=== PATIENT | male | born 1965 | race Two or more races ===

== ENCOUNTER 2024-07-02 00:02 | Emergency (ER) | payer SELFPAY ==
[~2024-07-02] VITALS: Ht 167.6 cm; Wt 86.3 kg
[2024-07-02 00:19] VITALS: PULSE 79; RESP 11; TEMP 97.6; O2SAT 97
--- NOTE | 2024-07-02 00:32 | ED.PDOC ---
Altered Mental Status HPI Comments 59-year-old male who came to ER via EMS for altered level of consciousness. Per EMS, patient was drinking heavily at home, when family members noted that patient became unresponsive. CPR initiated by family members as paramedics were called. Paramedics came patient noted to be unresponsive to deep sternal stimuli however has faint pulses and breathing spontaneously. CPR discontinued and that patient brought to the ER. Chief Complaint: ALOC Time Seen by MD: 00:32 Reviewed Notes: Nurses Notes Information Source: Patient Mode of Arrival: EMS Severity: Unresponsive Timing: Hours Duration: Since onset Prehospital treatment: CPR Quality: Decreased Alertness, Change in Behavior Recent: Other (Alcohol intoxication) Associated Signs and Symptoms: None Past Medical History PAST MEDICAL HISTORY: Unobtainable Surgical History: Unobtainable Family History Family History: Unobtainable Social History Smoker: Unobtainable Alcohol: Heavy Drugs: Unobtainable Lives In: Home Unable to Obtain due to: Altered Mental Status Physical Exam General Appearance: No Apparent Distress, Normal HEENT: Normal ENT Inspection, Pharynx Normal, TMs Normal Neck: Full Range of Motion, Non-Tender, Normal, Normal Inspection Respiratory: Chest Non-Tender, Lungs Clear, No Accessory Muscle Use, No Respiratory Distress, Normal Breath Sounds Cardiovascular: No Edema, No JVD, No Murmur, No Gallop, Normal Peripheral Pulses, Regular Rate/Rhythm Breast Exam: Deferred Gastrointestinal: No Organomegaly, Non Tender, No Pulsatile Mass, Normal Bowel Sounds, Soft Genitalia: Deferred Pelvic: Deferred Rectal: Deferred Extremities: No calf tenderness, Normal capillary refill, Normal inspection, Normal range of motion, Non-tender, No pedal edema Musculoskeletal : Apperance: Normal Neurologic: Alert, bath tester II-XII nml as Tested, No Motor Deficits, Normal Affect, Normal Mood, No Sensory Deficits Cerebellar Function: Normal Reflexes: Normal Skin: Dry, Normal Color, Warm Lymphatic: No Adenopathy Was a procedure done? Was a procedure done?: No Differential Diagnosis (ALOC) Differential Diagnosis: Encephalopathy, CVA, Drug Overdose, ETOH Intoxication X-Ray, Labs, Meds, VS Vital Signs Date Time Temp Pulse Resp B/P (MAP) Pulse Ox O2 Delivery O2 Flow Rate FiO2 07/02/24 03:00 68 15 111/63 (79) 97 07/02/24 01:00 77 27 116/65 (82) 96 07/02/24 00:19 97.6 79 11 111/72 (85) 97 97.6 07/02/24 00:19 79 11 97 Nasal Cannula* 4 36 07/02/24 00:07 98.6 72 10 132/71 (91) 95 07/02/24 00:02 78 Lab Test 07/02/24 02:40 07/02/24 01:52 Range/Units Troponin I High Sensitivity 6 7 </=54 ng/L White Blood Count 10.7 4.4-10.8 10^3/uL Red Blood Count 5.04 4.5-5.90 10^6/uL Hemoglobin 14.8 13.5-17.5 g/dL Hematocrit 44.9 41.0-53.0 % Mean Corpuscular Volume 89.0 80.0-100.0 fL Mean Corpuscular Hemoglobin 29.4 28.0-32.0 pg Mean Corpuscular Hemoglobin Concent 33.0 32.0-36.0 g/dL Red Cell Distribution Width 13.6 11.8-14.3 % Platelet Count 199 140-450 10^3/uL Mean Platelet Volume 7.2 6.9-10.8 fL Neutrophils (%) (Auto) 74.1 37.0-80.0 % Lymphocytes (%) (Auto) 17.9 10.0-50.0 % Monocytes (%) (Auto) 7.8 0.0-12.0 % Eosinophils (%) (Auto) 0.1 0.0-7.0 % Basophils (%) (Auto) 0.1 0.0-2.0 % Neutrophils # (Auto) 7.9 1.6-8.6 10 ^3/uL Lymphocytes # (Auto) 1.9 0.4-5.4 10 ^3/uL Monocytes # (Auto) 0.8 0-1.3 10 ^3/uL Eosinophils # (Auto) 0 0-0.8 10 ^3/uL Basophils # (Auto) 0 0-0.2 10 ^3/uL Nucleated Red Blood Cells 0.1 % Sodium Level 142 136-145 mmol/L Potassium Level 3.4 L 3.5-5.1 mmol/L Chloride Level 111 H 98-107 mmol/L Carbon Dioxide Level 20 20-31 mmol/L Anion Gap 11 5-15 Blood Urea Nitrogen 16 9-23 mg/dL Creatinine 0.68 L 0.700-1.30 mg/dL Glomerular Filtration Rate Calc 107 >90 mL/min BUN/Creatinine Ratio 23.5 H 10.0-20.0 Serum Glucose 98 74-106 mg/dL Calcium Level 9.2 8.7-10.4 mg/dL Plasma/Serum Blood Alcohol 145.4 H <10 mg/dL Current Medications Medications (Trade) Dose Ordered Sig/Valdemar Route Start Time Stop Time Status Last Admin Sodium Chloride 1,000 ml @ 1,000 mls/hr Q1H ONCE IV 07/02/24 02:15 07/02/24 03:14 DC 07/02/24 02:10 Time of 1ST Reevaluation: 00:29 Reevaluation 1ST: Unchanged Patient Education/Counseling: Pt Unresponsive Family Education/Counseling: No Family Present Departure 1 Departure Time of Disposition: 03:53 (Patient was acutely intoxicated with alcohol. Family is at bedside would like to take him home. We will discharge patient home with outpatient follow up) Impression: Primary Impression: Alcohol intoxication delirium Disposition: 01 HOME / SELF CARE / HOMELESS Condition: Stable Additional Instructions: You were intoxicated. It is important to only drink in moderation. If you need help quitting you can call (HELP). If your symptoms worsen or you have any other concerns then please return to the ER. Discharged With: Relative Critical Care Note Critical Care Time?: No Stability Stability form required: No Heart Score Heart Score: Heart Score Response (Comments) Value History Moderate Suspicious 1 EKG Repolarization Disturb 1 Age 45-64 1 Risk Factors 1 or 2 risk factors 1 Troponin Normal limit 0 Total 4 I personally scribed for IFEANYI MONTALVO MD ([email or web address]) on 07/02/24 at 00:32. Electronically submitted by Hakeem Sosa ([email or web address]). IFEANYI MONTALVO MD Jul 02, 2024 00:32
--- NOTE | 2024-07-02 01:49 | DVH ---
Examination: CXRP Clinical Indication: ams Comparison: None. Technique: Chest 1 view. Findings: Both the lung heath appear clear. Both the costophrenic and cardiophrenic angles are normal. Trachea and mediastinum are in the midline. Mild cardiomegaly is noted. There is no evidence of pleural effusion or pneumothorax. Bony thoracic cage appears normal. Impression: Mild cardiomegaly is noted. Electronically Signed 07/02/2024 01:41 Dimitri Smallwood
[2024-07-02] MEDS: SODIUM CHLORIDE 0.9% 1,000 ML IV ONE (02:10)
--- NOTE | 2024-07-02 02:13 | DVH ---
Examination: HWOCT CLINICAL INDICATION: ams COMPARISON: None. CONTRAST USED: None. TECHNIQUE: The examination was performed obtaining 5 mm slices without contrast.Technique for this C T scan was done using principles of ALARA (As Low As Reasonably Achievable). Multiplanar reconstructi ons were obtained FINDINGS: SUPRATENTORIAL BRAIN: Cerebral Hemispheres: There is no midline shift or mass effect, intra or extra-axial fluid collectio ns or hemorrhage. Periventricular White Matter/Basal Ganglia: No abnormal areas of altered attenuation within the eliezer ventricular white matter or basal ganglia. POSTERIOR FOSSA: The brainstem is normal and the visualized cerebellar hemispheres are unremarkable. VENTRICULAR SYSTEM: The ventricular system is normal in size. There is no evidence of hydrocephalus or transependymal flow of cerebrospinal fluid. SKULL BASE AND PARASELLAR REGION: The skull base is normal with no parasellar masses or abnormalitie s identified. CALVARIUM AND SCALP REGION: No abnormality is seen. PARANASAL SINUSES: No significant inflammatory changes are identified in the paranasal sinuses. IMPRESSION: No intracranial abnormality detected. There is no midline shift or mass effect, intra o r extra-axial fluid collections or hemorrhage. Electronically Signed 07/02/2024 02:05 Dimitri Smallwood
[2024-07-02 02:16] LABS: Basophils # (auto) 0 10 ^3/uL (0-0.2); Basophils % (auto) 0.1 % (0.0-2.0); Eosinophils # (auto) 0 10 ^3/uL (0-0.8); Eosinophils % (auto) 0.1 % (0.0-7.0); Hematocrit 44.9 % (41.0-53.0); Hemoglobin 14.8 g/dL (13.5-17.5); Lymphocytes # (auto) 1.9 10 ^3/uL (0.4-5.4); Lymphocytes % (auto) 17.9 % (10.0-50.0); Mean Corpuscular Hemoglobin 29.4 pg (28.0-32.0); Monocytes # (auto) 0.8 10 ^3/uL (0-1.3); Monocytes % (auto) 7.8 % (0.0-12.0); Neutrophils # (auto) 7.9 10 ^3/uL (1.6-8.6); Neutrophils % (auto) 74.1 % (37.0-80.0); Nucleated Red Blood Cells % 0.1 %; Platelet Count (auto) 199 10^3/uL (140-450); Red Blood Cells 5.04 10^6/uL (4.5-5.90); Red Cell Distribution Width 13.6 % (11.8-14.3); White Blood Cell 10.7 10^3/uL (4.4-10.8)
[2024-07-02 02:25] LABS: Chloride 111 mmol/L (98-107); Potassium 3.4 mmol/L (3.5-5.1); Sodium 142 mmol/L (136-145)
[2024-07-02 02:26] LABS: Anion Gap 11 (5-15); Calcium 9.2 mg/dL (8.7-10.4); Carbon Dioxide 20 mmol/L (20-31)
[2024-07-02 02:31] LABS: BUN/Creatinine Ratio 23.5 (10.0-20.0); Blood Urea Nitrogen 16 mg/dL (9-23); Glucose 98 mg/dL (74-106)
[2024-07-02 03:07] LABS: Blood Alcohol 145.4 mg/dL (<10)
[2024-07-02 04:00] VITALS: BP 104/65; PULSE 75; RESP 12; O2SAT 97
--- NOTE | 2024-07-03 14:39 | ECG ---
[facility] Test Date: 2024-07-02 Test Time: 00:02:12 Pat Name: SUMIT JACOBS Department: ER Room: Gender: M [employer]: ER : 1965 Requested By: IFEANYI MONTALVO Order Number: [id number] Reading MD: Measurements Intervals [place] Rate: 78 P: 75 WI: 172 QRS: 44 QRSD: 95 T: 62 QT: 373 QTc: 425 Interpretive Statements Sinus rhythm Abnormal R-wave progression, early transition Please click the below link to view image of tracing.
== END 2024-07-02 04:03 | disposition home or self-care (01) ==
LOC: ER 00:02 → EDBD 00:02 → ER 04:03
DX: F10.129 Alcohol abuse with intoxication, unspecified (principal); R40.4 Transient alteration of awareness; F17.200 Nicotine dependence, unspecified, uncomplicated
CPT/HCPCS: 36415; 70450; 71045; 80048; 80320; 84484; 85025; 93005; 96360; 99285; J7030